=== PATIENT | male | born 1975 | race Caucasian/White ===

== ENCOUNTER → 2023-12-25 15:24 | Outpatient (CLI) | payer BC, SELFPAY ==
--- NOTE | 2023-12-25 15:31 | DI.RAD.S_ITS ---
PROCEDURE: XR CHEST 2V INDICATIONS: acute cough TECHNIQUE: 2 views of the chest were acquired. COMPARISON: [facility], CR, XR CHEST 2 VIEWS, 12/15/2021, 14:37. FINDINGS: Surgical changes and devices: None. Lungs and pleura: Prominent appearance of the left hilum is unchanged. No dense consolidation or pleural effusion. Lung volumes are low. Mediastinum: Unchanged cardiomediastinal contours. Normal heart size Bones and chest wall: Unchanged left AC widening. IMPRESSION: Low lung volumes. No acute radiographic abnormality. Dictated by: Mina Kimball M.D. on 12/25/2023 at 16:49 Approved by: Mina Kimball M.D. on 12/25/2023 at 16:50
== END ==
PROVIDERS: PCP Family Medicine; Referring Provider Family Medicine; Visit Provider Family Medicine
DX: J69.0 Pneumonitis due to inhalation of food and vomit (principal); R05.1 Acute cough
CPT/HCPCS: 71046

== ENCOUNTER → 2023-12-30 06:31 | Outpatient (CLI) | payer BC, SELFPAY ==
--- NOTE | 2023-12-30 06:33 | DI.US.S_ITS ---
PROCEDURE: US THYROID INDICATIONS: Nontoxic single thyroid nodule TECHNIQUE: Real-time scanning was performed of the thyroid gland, with image documentation. COMPARISON: Thyroid ultrasound 12/15/2021. FINDINGS: Right: Thyroid lobe measures 5.1 x 2.5 x 2.0 cm, and is homogeneous in echotexture. Left: Thyroid lobe measures 4.5 x 2.2 x 2.0 cm, and is homogenous in echotexture. Isthmus: 0.9 cm thick. Nodule number: 1 Location: Right mid Size: 1.0 x 0.9 x 0.5 cm, previously 0.9 x 0.8 x 0.7 cm on 12/15/2021. Composition: Solid Echogenicity: Hypoechoic Shape: wider than tall. Margins: Smooth Echogenic foci: None Total points: 4 ACR TI-RADS category: Moderately suspicious IMPRESSION: Stable moderately suspicious 1.0 cm right thyroid nodule. Previously described left thyroid nodule is not definitively visualized on current exam. Recommend ACR TI -RADS imaging follow-up as indicated below: ACR TI-RADS definitions and recommendations: TI-RADS 1 (benign): 0 points. FNA not needed. TI-RADS 2 (not suspicious): 2 points. FNA not needed. TI-RADS 3 (mildly suspicious): 3 points. * FNA if 2.5 cm or larger, follow up if 1.5 cm or larger (at 1, 3, and 5 years). TI-RADS 4 (moderately suspicious): 4-6 points. * FNA if 1.5 cm or larger, follow up if 1 cm or larger (at 1, 2, 3, and 5 years). TI-RADS 5 (highly suspicious): 7 points or more. * FNA if 1 cm or larger, follow up if 0.5 cm or larger (every year for 5 years). Approved by: Sara Betancourt M.D. on 12/30/2023 at 8:45
== END ==
LOC: US 06:32
PROVIDERS: PCP Family Medicine; Referring Provider Family Medicine; Visit Provider Family Medicine
DX: E04.1 Nontoxic single thyroid nodule (principal)
CPT/HCPCS: 76536

== ENCOUNTER → 2024-02-06 10:00 | Outpatient (CLI) | payer BC, SELFPAY ==
--- NOTE | 2024-02-06 10:04 | DI.RAD.S_ITS ---
PROCEDURE: XR KNEE LT 3V INDICATIONS: LT KNEE PAIN TECHNIQUE: 3 views of the knee were acquired. COMPARISON: None. FINDINGS: Bones: No fractures or dislocations. No suspicious bony lesions. There are small left intercondylar osteophytes and mild bilateral femorotibial compartment narrowing. Soft tissues: No joint effusion. No suspicious soft tissue calcifications. IMPRESSION: Mild osteoarthritis, slightly greater on the left than on the right. Dictated by: Che Ornelas M.D. on 02/06/2024 at 10:55 Approved by: Che Ornelas M.D. on 02/06/2024 at 10:55
--- NOTE | 2024-02-06 10:15 | DI.RAD.S_ITS ---
PROCEDURE: XR KNEE RT 1TO2V INDICATIONS: KNEEPAIN TECHNIQUE: Single AP view of the right knee was acquired. COMPARISON: [facility], CR, XR KNEE LT 3V, 02/06/2024, 10:14. FINDINGS: Bones: There is mild medial femorotibial compartment narrowing on single AP view of the liver right knee. Soft tissues: No joint effusion. No suspicious soft tissue calcifications. IMPRESSION: Limited study. Mild degenerative change. Dictated by: Che Ornelas M.D. on 02/06/2024 at 10:56 Approved by: Che Ornelas M.D. on 02/06/2024 at 10:56
== END ==
PROVIDERS: PCP Family Medicine; Referring Provider Family Medicine; Visit Provider Family Medicine
DX: M25.562 Pain in left knee (principal); M17.12 Unilateral primary osteoarthritis, left knee
CPT/HCPCS: 73560; 73562

== ENCOUNTER → 2024-12-31 12:37 | Outpatient (CLI) | payer BC, SELFPAY ==
[2024-12-31 13:22] LABS: Add Manual Diff / Slide Review NO; Basophils Absolute Auto 0 /uL (0-100); Basophils Percent Auto 0.5 % (0-2); Eosinophils Absolute Auto 200 /uL (0-450); Eosinophils Percent Auto 2.1 % (2-4); Hematocrit 46.1 % (41-53); Hemoglobin 15.7 g/dL (13.5-17.5); Lymphocytes Absolute Auto 1100 /uL (1100-4500); Lymphocytes Percent Auto 15.1 % (25-40); Mean Corpuscular HGB Conc 34.1 % (30-36); Mean Corpuscular Hemoglobin 30.3 PG (26-34); Mean Corpuscular Volume 88.9 fL (80-100); Monocytes Absolute Auto 700 /uL (0-900); Monocytes Percent Auto 9.1 % (3-14); Neutrophils Absolute Auto 5300 /uL (1500-7000); Neutrophils Percent Auto 73.2 % (50-75); Platelet Count 230 X10^3/uL (150-400); Red Blood Cell Count 5.19 X10^6/uL (4.5-5.9); Red Cell Distribution Width 12.7 % (11.6-14.8); White Blood Cell Count 7.2 X10^3/uL (4.5-11.0)
[2024-12-31 14:09] LABS: Thyroid Stimulating Hormone 0.726 uIU/mL (0.47-4.68)
[2024-12-31 14:24] LABS: Alanine Aminotransferase 31 IU/L (<50); Albumin 4.6 g/dL (3.5-5.0); Albumin Globulin Ratio 1.8 (1.0-2.8); Alkaline Phosphatase 66 U/L (38-126); Aspartate Aminotransferase 36 IU/L (17-59); BUN Creatinine Ratio 16.5 (6-22); Bilirubin Total 0.7 mg/dL (0.2-1.3); Blood Urea Nitrogen 13 mg/dL (9-20); Carbon Dioxide 24 mmol/L (22-32); Chloride 104 mmol/L (98-107); Cholesterol 243 mg/dL (140-199); Estimated Glomerular Filt Rate > 60 mL/min (>60); Globulin 2.6 g/dL (1.7-4.1); Glucose 88 mg/dL (70-100); HDL Cholesterol 34 mg/dL (40-60); HEMOLYSIS < 15 (0-50); LDL Cholesterol Calculated 159 mg/dL (<100); Potassium 3.8 mmol/L (3.4-5.1); Sodium 137 mmol/L (137-145); Total Protein 7.2 g/dL (6.3-8.2); Triglycerides 252 mg/dL (35-150)
== END ==
LOC: LAB 12:38
PROVIDERS: PCP Family Medicine; Referring Provider Family Medicine; Visit Provider Family Medicine
DX: E04.1 Nontoxic single thyroid nodule (principal); R06.00 Dyspnea, unspecified; K21.9 Gastro-esophageal reflux disease without esophagitis
CPT/HCPCS: 36415; 80053; 80061; 84443; 85025

== ENCOUNTER → 2025-01-28 06:57 | Outpatient (CLI) | payer BC, SELFPAY ==
--- NOTE | 2025-01-28 06:58 | DI.US.S_ITS ---
PROCEDURE: US THYROID INDICATIONS: THYROID NODULE TECHNIQUE: Real-time scanning was performed of the thyroid gland, with image documentation. COMPARISON: [facility], US, US THYROID, 12/30/2023, 6:58. FINDINGS: Thyroid: Right lobe measures 4.6 x 2.7 x 1.6 cm. Left lobe measures 4.8 x 2.7 x 1.8 cm. Isthmus is 0.6 cm thick. Echotexture is heterogeneous. Previously described 1 x 0.9 x 0.5 cm solid nodule in mid pole right thyroid lobe now measures 9 x 7 x 8 mm in size. There is also a 5 x 4 x 4 mm solid nodule is seen in lower pole left thyroid lobe. IMPRESSION: 1. Mildly heterogeneous thyroid parenchymal echotexture. 2 subcentimeter nodules noted in bilateral thyroid lobes as described above , neither meets the criteria for FNA or sonographic follow-up. ACR TI-RADS definitions and recommendations: TI-RADS 1 (benign): 0 points. FNA not needed. TI-RADS 2 (not suspicious): 2 points. FNA not needed. TI-RADS 3: 3 points. * FNA if 2.5 cm or larger, follow up if 1.5 cm or larger (at 1, 3, and 5 years). TI-RADS 4: 4-6 points. * FNA if 1.5 cm or larger, follow up if 1 cm or larger (at 1, 2, 3, and 5 years). TI-RADS 5: 7 points or more. * FNA if 1 cm or larger, follow up if 0.5 cm or larger (every year for 5 years). Dictated by: Alfonso Castellano M.D. on 01/28/2025 at 17:03 Approved by: Alfonso Castellano M.D. on 01/28/2025 at 17:06
== END ==
PROVIDERS: PCP Family Medicine; Referring Provider Family Medicine; Visit Provider Family Medicine
DX: E04.2 Nontoxic multinodular goiter (principal)
CPT/HCPCS: 76536